=== PATIENT | male | born 1955 | race Caucasian/White ===

== ENCOUNTER 2020-06-19 09:23 | Outpatient (CLI) | payer MEDICARE, OTHER, SELFPAY ==
--- NOTE | ~2020-06-19 | US_ITS ---
US abdomen complete DATE: 06/19/2020 10:02 INDICATION: Abnormal liver function tests TECHNIQUE: Real-time imaging and Doppler analysis of the abdomen COMPARISON: None FINDINGS: No hepatic or pancreatic space-occupying mass lesion is evident. Normal hepatopedal portal venous flow direction. The common bile duct measures 5.6 mm, within normal range. No gallstones or gallbladder wall thickeni ng. Negative Fuchs's sign. Normal caliber of the abdominal aorta; unremarkable inferior vena cava. No renal mass lesion or hydronephrosis. Normal splenic size. IMPRESSION: No significant abnormality Reviewed, dictated and finalized at [facility]. Reviewed, dictated and finalized at [facility]. IMPRESSION: No significant abnormality
== END 2020-06-19 09:24 | disposition home or self-care (01) ==
PROVIDERS: PCP Internal Medicine; Visit Provider Nurse Practitioner
DX: R94.5 Abnormal results of liver function studies (principal)
CPT/HCPCS: 76700

== ENCOUNTER 2020-12-07 11:02 | Emergency (ER) | payer MEDICARE, OTHER, SELFPAY ==
[2020-12-07 11:06] VITALS: BP 152/86; PULSE 59; RESP 16; TEMP 36.2; O2SAT 96
[2020-12-07] MEDS: LIDOCAINE HCL 1% LOCAL INJ 20 ML VIAL 10 ML INFILTRATE (12:05)
[2020-12-07] MEDS: HYDROcodone/acetaminophen (*CRX) 5-325 MG TABLET 1 TAB PO (13:00)
--- NOTE | 2020-12-07 22:06 | ED.GENADULT ---
HPI - General Adult General Chief complaint: Skin/Abscess/Foreign Body Stated complaint: infected ingrown hair Time Seen by Provider: 12/07/20 11:21 Source: patient Mode of arrival: ambulatory Limitations: no limitations History of Present Illness HPI narrative: Patient presents with chief complaint of pain to the right chest wall that began with an ingrown hair. He states over the past 4 days there has been increased tenderness, erythema to the area. Patient states that yesterday the area began to drain. He states it is very painful. He denies any fever, chills, nausea, vomiting, diarrhea or any other symptoms. Related Data Allergies Allergy/AdvReac Type Severity Reaction Status Date / Time No Known Allergies Allergy Mild Verified 12/07/20 11:03 Review of Systems Review of Systems: CONSTITUTIONAL: Denies fever, chills, or sweats. EYES: Denies visual changes, redness, or discharge. ENT: Denies rhinorrhea, congestion, sore throat, or otalgia. CARDIOVASCULAR: Denies chest pain, palpitations, or edema. RESPIRATORY: Denies cough or dyspnea. GASTROINTESTINAL: Denies abdominal pain, nausea, vomiting, or diarrhea. GENITOURINARY: Denies dysuria or hematuria. SKIN: Reports abscess denies rash or itching. MUSCULOSKELETAL: Denies back pain, joint pain, or myalgia. NEUROLOGIC: Denies headache, numbness, dizziness, or weakness. PSYCHIATRIC: Denies anxiety or depression. [facility] Family History Family History (Updated 11/21/17 @ 10:01 by DOCTOR UNKNOWN) Mother Family history of thyroid disease Cerebrovascular accident Sibling Cerebrovascular accident Father Cerebrovascular accident Social History Social History Smoking status: Never smoker Exam Narrative: GENERAL: Well-appearing, well-nourished, and in no acute distress. HEAD: Normocephalic, atraumatic. EYES: PERRLA and EOMI. CHEST: Patient chest wall very hairy. There is an abscess with a small draining opening under the right nipple. There is an approximately 2 inch x 2 inch area of induration with fluctuance. It is erythematous and warm to touch. clear to auscultation. No respiratory distress. No wheezes rales or rhonchi HEART: Regular rate and rhythm. No murmur heard. Normal peripheral pulses. EXTREMITIES: Normal range of motion. No edema. SKIN: See chest. warm, dry, no rash. NEURO: No focal deficits. Alert and oriented x3. PSYCH: Normal mood and affect. Course Vital Signs Vital signs: Vital Signs Temperature 97.2 F L 12/07/20 11:06 Pulse Rate 59 L 12/07/20 11:06 Respiratory Rate 16 12/07/20 11:06 Blood Pressure 152/86 H 12/07/20 11:06 Pulse Oximetry 96 12/07/20 11:06 Temperature 97.2 F L 12/07/20 11:06 Pulse Rate 59 L 12/07/20 11:06 Respiratory Rate 16 12/07/20 11:06 Blood Pressure 152/86 H 12/07/20 11:06 Pulse Oximetry 96 12/07/20 11:06 Procedures Abscess I/D chest: Side (if applicable): right Local Anesthetic: lidocaine 1% Amount of anesthesia used (mL): 7 Technique: incised with #11 blade Irrigation: Yes Packing used?: none I&D Results: Pus (Small amount) Abcess I&D Additional Comments: Area explored with hemostat to attempt breaking of loculations as only a very small amount of pus was extracted. There is not a very deep cavity. I expected more pussy drainage due to the erythema and induration. 2 small incisions made and explored. Instructed patient on wound care and informed him if symptoms are not improving in a few days that he may need ultrasound an/or surgical evaluation to make sure abscess is not deeper or in more hidden location. Medical Decision Making MDM Narrative Medical decision making narrative: Discussed that important need for close follow-up to make sure that his symptoms are improving. Discussed with patient that he needs to follow-up with his primary care on Tuesday for reevaluation. Discussed with patient may need to f
== END 2020-12-07 13:14 | disposition home or self-care (01) ==
PROVIDERS: Emergency Provider Emergency Medicine; PCP Internal Medicine
DX: N61.1 Abscess of the breast and nipple (principal)
CPT/HCPCS: 10060; 87070; 87147; 87181; 87186; 87205; 99283; A9270

== ENCOUNTER 2021-10-28 01:38 | Day surgery (SDC) | payer MEDICARE, OTHER, SELFPAY ==
[2021-10-19 12:59] VITALS: BMI 34.7
--- NOTE | 2021-10-27 14:54 | PM.HPGS ---
History of Present Illness History of Present Illness Consent: Risks, benefits, and alternatives have been discussed and questions answered. Patient agrees to proceed with procedure. Chief complaint: hx of colon polyps Narrative: Chris Griffin is a 66 year old male referred for colon cancer screening. He had a polyp removed about 3 years ago at another institution. We do not have the histology on that. Review of Systems Review of Systems: All systems reviewed & are unremarkable except as noted in HPI and below PMFSH Past Medical History Medical History Hyperlipidemia Obesity ABE (obstructive sleep apnea) Family History Family History Mother Family history of thyroid disease Cerebrovascular accident Sibling Cerebrovascular accident Father Cerebrovascular accident Social History Social History Smoking status: Never smoker Alcohol intake: never Substance use: never Living arrangements: with family Spiritual care concerns: No Meds Home Medications and Allergies Home Medications Medication Instructions Recorded Confirmed Type rosuvastatin 5 mg tablet 5 mg PO DAILY 10/15/21 10/15/21 History Allergies Allergy/AdvReac Type Severity Reaction Status Date / Time No Known Allergies Allergy Mild Verified 10/28/21 10:55 Exam Const: General: alert Nutritional Appearance: obese Orientation/consciousness: patient oriented x3 Resp: Auscultation: clear to auscultation bilaterally Cardio: Rhythm: regular rhythm GI: GI Palp: Yes Soft to palpation and No Tenderness to palpation present (GI) Neuro: General: patient oriented x3 Assessment and Plan Assessment and plan (1) Colon cancer screening: Code(s): Z12.11 - Encounter for screening for malignant neoplasm of colon Status: Acute Assessment and Plan: Colonoscopy with possible biopsy or polypectomy or cautery or injection of substances.
[2021-10-28 10:56] VITALS: BP 134/85; PULSE 58; RESP 18; TEMP 36; O2SAT 98
[2021-10-28] MEDS: LACTATED RINGERS 1,000 ML 150 ML IV CONT (11:05)
--- NOTE | 2021-10-28 11:10 | P.PNAN_ITS ---
Anes - Initial Pre Proc Eval Procedure: Operation Date: 10/28/21 12:30 Proposed Procedures p Screening Colonoscopy - Moose Avila MD Date/Time: 10/28/21 11:10 Surgeon: Moose Avila MD Pre Op Diagnosis: hx of colon polyps Patient Data Age: 66 Gender: M Height: 1.88 m Weight: 127.5 kg Last Vital Signs Temp 36.0 C L 10/28/21 10:56 Pulse 58 L 10/28/21 10:56 Resp 18 10/28/21 10:56 BP 134/85 10/28/21 10:56 Pulse Ox 98 10/28/21 10:56 O2 Del Method Room Air 10/28/21 10:56 Allergies Allergy/AdvReac Type Severity Reaction Status Date / Time No Known Allergies Allergy Mild Verified 10/28/21 10:55 Home Medications Medication Instructions Recorded Confirmed Type rosuvastatin 5 mg tablet 5 mg PO DAILY 10/15/21 10/15/21 History Patient hx anesthesia problems: none Family hx anesthesia problems: none Results Review: All pre-operative results and documents have been reviewed as part of the pre-operative evaluation. [facility] Past Medical History Medical History (Updated 10/28/21 @ 11:11 by Jorje Nowak MD) Hyperlipidemia Obesity ABE (obstructive sleep apnea) Family History Family History (Updated 11/21/17 @ 10:01 by DOCTOR UNKNOWN) Mother Family history of thyroid disease Cerebrovascular accident Sibling Cerebrovascular accident Father Cerebrovascular accident Social History Social History Smoking status: Never smoker Alcohol intake: never Substance use: never Living arrangements: with family Spiritual care concerns: No Anes - Eval Final PreProcedure Day of Procedure 10/28/21 11:10 Patient weight: obese Heart: regular rate and rhythm Lungs: clear to auscultation and normal air movement Airway: Mallampati scale class II Neurological: alert and oriented Last oral intake: >/= 8 hours ASA classification: II Emergent: no Anesthetic plan: proceed Anesthesia type and monitoring: general GIVS Results Review: All pre-operative results and documents have been reviewed as part of the pre- operative evaluation. Informed Consent: The patient's anesthetic plan and its attendant risks and benefits were discussed with the patient/family/POA. Questions were solicited and answers provided to the satisfaction of the patient/family/POA.
[2021-10-28] MEDS: SIMETHICONE ORAL SUSPENSION 20 MG/0.3 ML 30 ML BOTTLE 0.6 ML IRRIGATION (12:22)
[2021-10-28 12:31] VITALS: BP 112/77; PULSE 83; RESP 16; O2SAT 93
[2021-10-28 12:41] VITALS: BP 120/79; PULSE 55; RESP 18; O2SAT 95
[2021-10-28 12:51] VITALS: BP 116/74; PULSE 53; RESP 12; O2SAT 98
== END 2021-10-28 13:04 | disposition home or self-care (01) ==
PROVIDERS: PCP Internal Medicine; Visit Provider Internal Medicine Gastroenterology
PROC: 0DJD8ZZ Inspection of Lower Intestinal Tract, Via Natural or Artificial Opening Endoscopic (ICD-10-PCS; CPT 45378; principal; 2021-10-28 12:30)
DX: Z12.11 Encounter for screening for malignant neoplasm of colon (principal); G47.33 Obstructive sleep apnea (adult) (pediatric); E78.5 Hyperlipidemia, unspecified; E66.9 Obesity, unspecified; Z68.36 Body mass index [BMI] 36.0-36.9, adult
CPT/HCPCS: G0121; J2704; J7120

== ENCOUNTER → 2021-12-21 15:06 | Outpatient (CLI) | payer MEDICARE, OTHER, SELFPAY ==
--- NOTE | ~2021-12-21 | CT_ITS ---
EXAMINATION: CT abdomen pelvis wo/w con DATE: 12/21/2021 15:52 INDICATION: Microscopic hematuria. History of melanoma. TECHNIQUE: Computed tomography (CT) of the abdomen and pelvis was performed without and with 130 cc O mnipaque 350 intravenous contrast. The dose-length product was 2218.15 mGy-cm. Automated exposure con trol and iterative reconstruction technique were employed. COMPARISON: None. FINDINGS: Lung bases are unremarkable. Heart size normal. No significant pleural or pericardial effus ion. No significant vascular abnormality. No lymphadenopathy. No renal stones or hydronephrosis. Nonobstructive bowel pattern. No free air or free fluid. Fatty inf iltration of the liver. There is a nonenhancing 1.7 cm right renal lesion measuring 15 Hounsfield uni ts precontrast and 20 Hounsfield units postcontrast, consistent with a cyst. There is a small subcent imeter hypovascular mass in the right kidney, also likely a cyst. There is a small hypovascular lesio n in the left kidney measuring 7 mm, statistically likely benign cysts. No significant hydronephrosis . Ureters are normal in course and caliber. Bladder is unremarkable. Colonic diverticulosis without e vidence for diverticulitis. Prostate gland is mildly prominent. There is severe lumbar spondylosis. There is sclerosis of L4 and L5. There is a sclerotic lesion of the right ilium. IMPRESSION: 1. Multiple hypovascular lesions of the kidneys, most likely benign cysts. Consider correlation with ultrasound. 2: Sclerosis of L4, L5 as well as a sclerotic lesion focally in the right ilium. These may represent benign findings, although metastatic disease is not excluded. Correlate for history of malignancy. Co nsider further evaluation with bone scan. 3: Hepatic steatosis. 4: Mildly enlarged prostate gland. Reviewed, dictated and finalized at [facility]. IMPRESSION: 1. Multiple hypovascular lesions of the kidneys, most likely benign cysts. Cons ider correlation with ultrasound. 2: Sclerosis of L4, L5 as well as a sclerotic lesion focally in the right ilium . These may represent benign findings, although metastatic disease is not exclu ded. Correlate for history of malignancy. Consider further evaluation with bone scan. 3: Hepatic steatosis. 4: Mildly enlarged prostate gland.
[2021-12-21 15:28] LABS: Estimated Glomerular Filt Rate > 60
== END ==
PROVIDERS: PCP Urology; Visit Provider Urology
DX: R31.29 Other microscopic hematuria (principal); K76.0 Fatty (change of) liver, not elsewhere classified; N40.0 Benign prostatic hyperplasia without lower urinary tract symptoms
CPT/HCPCS: 74178; Q9967

== ENCOUNTER → 2022-08-24 09:31 | Outpatient (CLI) | payer MEDICARE, OTHER, SELFPAY ==
--- NOTE | ~2022-08-24 | MM_ITS ---
EXAMINATION: MM diagnostic ayse RT w shani HISTORY: Right nipple sensitivity TECHNIQUE: Bilateral MLO and right CC views CAD analysis was submitted and interpreted. COMPARISON: None BREAST PARENCHYMAL COMPOSITION: The breasts are almost entirely fatty. FINDINGS: No suspicious mass, architectural distortion, malignant calcification, skin thickening or r etraction is detected. IMPRESSION: No mammographic evidence of malignancy BI-RADS Category 1: Negative Reviewed, dictated and finalized at [facility].
== END ==
PROVIDERS: PCP Internal Medicine; Visit Provider Internal Medicine
DX: N64.4 Mastodynia (principal)
CPT/HCPCS: 77061; 77065; G0279

== ENCOUNTER 2022-12-29 08:30 | Outpatient (CLI) | payer MEDICARE, OTHER, SELFPAY ==
--- NOTE | 2023-01-18 16:51 | WPDSLEEPSTUD ---
Sleep Study Date of Study: 12/29/22 Ordering Provider: Brendan ReynaMD Interpreting Physician: Mayra Mcdonough, Sleep Study Type: Polysomnogram Height: 1.88 m Weight: 124.738 kg Body Mass Index: 35.3 Neck Circumference (inches): 19 [place]ula: 5 Reason for Sleep Study Previously diagnosed with ABE. Had PSG on 01/06/2009 that showed an overall AHI of 18 with desaturation down to 84%. The patient had a PAP Titration study on 03/17/2009 where CPAP 7 cm H2O was the optimal pressure. Current CPAP is 12 years old. Sleep History The patient is a 68-year-old male with prediabetes, hyperlipidemia, osteoarthritis, colonic polyps and previously diagnosed ABE on CPAP that had a sleep study ordered by his primary care physician so the patient could get a new CPAP machine. The patient rarely awakens from sleep short of breath. He rarely awakens at night with heartburn, belching or cough. He frequently snores and is frequently loud enough that others complain. He frequently has trouble sleeping when he has a cold. He rarely wakes up gasping for air throughout the night. He frequently has breathing problems at night observed by himself or others. He occasionally sweats excessively at night. He rarely has heart palpitations or irregular heartbeats during the night. He rarely falls asleep during the day and never while driving. He denies sleep paralysis, cataplexy and hypnagogic / hypnopompic hallucinations. He denies having trouble at school or work due to sleepiness. He denies feeling afraid of going to sleep he rarely has nightmares. He occasionally remembers his dreams. He occasionally has thoughts racing through his mind. He rarely feels sad or depressed. He occasionally has anxiety. He rarely has muscular tension. He rarely notices parts of his body jerk. He rarely kicks during the night. He occasionally has crawling and aching feelings in his legs and occasionally has leg pain during the night. He occasionally grinds his teeth during sleep but rarely awakens with morning jaw pain. He is occasionally bothered by pain during the day but rarely awakened by pain during the night. He occasionally wakes up feeling stiff in the morning. He occasionally wakes up with sore or achy muscles. He occasionally wakes up with pain in the neck, spine or other joints. He goes to bed between 10-11 p.m. on weekdays and between 11:00 p.m. to midnight on the weekends. It takes him 30-60 minutes to fall asleep. He wakes up once throughout the night to urinate a is able to fall back asleep within 10 minutes. He wakes up at 6:00 a.m. on weekdays and at 7:00 a.m. on the weekends. He typically gets 4-6 hours of sleep per night. He will stay in bed for 10 minutes after waking up in the morning. He currently lives with his and 2 children. He will consume caffeinated beverages within 2 hours of bedtime. He denies engaging in physical exercise before bedtime. He will watch television before falling asleep. He will take naps in the afternoon or the evening and they are refreshing. He consumes 1 cup of coffee and 2 cups of caffeinated iced tea throughout the day. He has less than 1 alcoholic beverage per week on average. He denies tobacco and recreational drug use. [facility] Past Medical History Medical History Hyperlipidemia Obesity ABE (obstructive sleep apnea) Family History Family History Mother Family history of thyroid disease Cerebrovascular accident Sibling Cerebrovascular accident Father Cerebrovascular accident Social History Social History Smoking status: Never smoker Alcohol intake: never Substance use: never Living arrangements: with family Spiritual care concerns: No Medications Home Medications Medication Ins
[2023-01-18 16:59] VITALS: BMI 35.3
== END 2022-12-30 07:21 | disposition home or self-care (01) ==
PROVIDERS: PCP Internal Medicine; Visit Provider Internal Medicine
DX: G47.33 Obstructive sleep apnea (adult) (pediatric) (principal); R06.83 Snoring
CPT/HCPCS: 95810

== ENCOUNTER 2024-05-30 09:14 | Outpatient (CLI) | payer MEDICARE, OTHER, SELFPAY ==
--- NOTE | ~2024-05-30 | US_ITS ---
Abdominal Sonogram: Real-time sonographic imaging of the abdomen was performed. Clinical History: Fatty liver Findings: The liver appears echogenic, with no evidence of mass lesion or bile duct dilatation. Main portal vein demonstrates normal direction of flow. The spleen is normal in size without evidence of focal lesion. The gallbladder is well distended, and appears normal with no evidence of gallstone or wall thickening. The common bile duct measures 6 mm. The visualized pancreas, aorta, and IVC are un remarkable. The right kidney measures 12.5 cm in length and the left kidney measures 11.3 cm. There is no hydronephrosis or renal calculus. Impression: Diffuse fatty infiltration of the liver. Reviewed, dictated and finalized at [facility]. Impression: Diffuse fatty infiltration of the liver.
== END 2024-05-30 09:15 | disposition home or self-care (01) ==
LOC: MICIMG 09:16
PROVIDERS: PCP Family Medicine; Visit Provider Nurse Practitioner Adult Health
DX: K76.0 Fatty (change of) liver, not elsewhere classified (principal)
CPT/HCPCS: 76700